=== PATIENT | female | born 2005 | race Caucasian/White ===

== ENCOUNTER 2024-05-28 15:09 | Emergency (ER) | payer MEDICAID, OTHER ==
[~2024-05-28] VITALS: Ht 154.9 cm; Wt 90.0 kg
[2024-05-28 15:25] VITALS: O2SAT 95
[2024-05-28] MEDS ORDERED: ASPIRIN 325MG EC TABLET PO NR (17:30)
[2024-05-28] MEDS ORDERED: NITROGLYCERIN 0.4MG TABLET SL SL NR (17:30)
[2024-05-28 19:36] LABS: BASOPHILS % 0.3 % (0.0-2.0); EOSINOPHILS % 5.4 % (0.0-5.0); HEMATOCRIT. 45.8 % (36.0-48.0); HEMOGLOBIN. 15.2 g/dL (12.0-16.0); LYMPHOCYTES % 39.3 % (20.0-50.0); MEAN CORPUSCULAR HEMOGLOBIN 28.7 pg (28.0-32.0); MEAN CORPUSCULAR HGB CONC 33.2 g/dL (31.0-37.0); MEAN CORPUSCULAR VOLUME 86.3 fL (81.0-99.0); MEAN PLATELET VOLUME 8.3 fl (7.4-10.4); MONOCYTES % 4.7 % (2.0-8.0); NEUTROPHILS % 50.3 % (40.0-76.0); PLATELET 364 x1000/uL (130-400); RED BLOOD CELL COUNT 5.31 mill/uL (4.2-5.4); RED CELL DISTRIBUTION WIDTH 13.4 % (11.6-14.6); WHITE BLOOD COUNT 10.5 x1000/uL (4.5-11.0)
[2024-05-28] MEDS: SODIUM CHLORIDE 0.9% 500 ML IV ONE (19:51)
[2024-05-28 21:44] LABS: D-DIMER < 0.19 mg/L FEU (<0.50); PROTHROMBIN TIME 11.4 sec (9.6-11.0)
[2024-05-28 21:45] LABS: CHLORIDE 111 mEq/L (98-107); POTASSIUM 3.8 mEq/L (3.5-5.1); SODIUM 143 mEq/L (136-145)
[2024-05-28 21:46] LABS: CARBON DIOXIDE 22 mEq/L (21-32)
[2024-05-28 21:47] LABS: CALCIUM 9.4 mg/dL (8.7-10.4)
[2024-05-28 21:51] LABS: CREATININE 0.7 mg/dL (0.6-1.0); GLUCOSE 96 mg/dL (70-105)
[2024-05-28 21:52] LABS: UREA NITROGEN BLOOD 7 mg/dL (9-23)
[2024-05-28 21:53] LABS: ALANINE AMINOTRANSFERASE 11 IU/L (10-49); ALBUMIN 4.4 g/dL (3.2-4.8); ASPARTATE AMINOTRANSFERASE 18 IU/L (<34)
[2024-05-28 21:54] LABS: BILIRUBIN TOTAL 0.5 mg/dL (0.1-1.0); PROTEIN TOTAL 7.6 g/dL (6.0-8.3)
[2024-05-28 22:09] LABS: HCG SCREEN NEGATIVE
[2024-05-28 22:39] LABS: TROPONIN I HIGH SENSITIVITY < 4 ng/L (3.0-34)
[2024-05-28] MEDS ORDERED: ALBU90AE INH (23:03)
[2024-05-28 23:08] VITALS: BP 131/91; PULSE 96; RESP 18; TEMP 37; O2SAT 95
== END 2024-05-28 23:08 | disposition home or self-care (01) ==
LOC: ER 15:09 → EDBEDREQ 17:29 → ER 23:08
DX: R07.89 Other chest pain (principal); J45.909 Unspecified asthma, uncomplicated
CPT/HCPCS: 36415; 71046; 80053; 83880; 84484; 84703; 85025; 85379; 93005; 96360; 99291